=== PATIENT | male | born 1965 | race African-American/Black ===

== ENCOUNTER 2017-11-16 19:10 | Emergency (ER) | payer OTHER ==
[2017-11-16 19:41] LABS: ADD MAN DIFF? NO
[2017-11-16] MEDS: HYDROmorphONE 1 MG/ML SYG IV ×3 (19:41→22:23)
[2017-11-16] MEDS: ONDANSETRON 4 MG INJ IV ×3 (19:41→22:23)
[2017-11-16] MEDS: SOD CHLORIDE 0.9% 1,000 ML IV (19:41)
[2017-11-16 19:43] LABS: BASOPHILS % 0.4 % (0.0-2.0); EOSINOPHILS # 0.2 10^3/ul (0.0-0.5); EOSINOPHILS % 1.5 % (0.0-7.0); HEMATOCRIT 39.7 % (42.0-52.0); HEMOGLOBIN 12.7 g/dl (14.0-18.0); LYMPHOCYTES # 2.1 10^3/ul (0.8-2.9); LYMPHOCYTES % 20.7 % (15.0-51.0); MEAN CORPUSCULAR HEMOGLOBIN 26.7 pg (29.0-33.0); MEAN CORPUSCULAR VOLUME 83.4 fl (82.0-101.0); MEAN PLATELET VOLUME 10.5 fl (7.4-10.4); MONOCYTE # 0.7 10^3/ul (0.3-0.9); MONOCYTES % 6.8 % (0.0-11.0); NEUTROPHIL # 7.2 10^3/ul (1.6-7.5); NEUTROPHILS % 70.3 % (39.0-77.0); PLATELET COUNT 210 10^3/UL (140-415); RED BLOOD COUNT 4.76 10^6/ul (4.70-6.10); RED CELL DISTRIBUTION WIDTH 13.6 % (11.5-14.5)
[2017-11-16 19:43] LABS: WHITE BLOOD COUNT 10.2 10^3/ul (4.8-10.8)
[2017-11-16 20:04] LABS: ALANINE AMINOTRANSFERASE 54 IU/L (13-69); ALBUMIN 4.4 g/dl (3.3-4.9); ALBUMIN/GLOBULIN RATIO 1.41; ALKALINE PHOSPHATASE 55 IU/L (42-121); AMYLASE 86 U/L (11-123); ANION GAP 17 (8-16); ASPARTATE AMINO TRANSFERASE 33 IU/L (15-46); BILIRUBIN,INDIRECT 0.2 mg/dl (0-1.1); BILIRUBIN,TOTAL 0.2 mg/dl (0.2-1.3); BLOOD UREA NITROGEN 11 mg/dl (7-20); CALCIUM 9.5 mg/dl (8.4-10.2); CARBON DIOXIDE 27 mmol/L (21-31); CHLORIDE 102 mmol/L (97-110); CREATININE 0.99 mg/dl (0.61-1.24); GLUCOSE 101 mg/dl (70-220); LIPASE 55 U/L (23-300); POTASSIUM 3.9 mmol/L (3.5-5.1); SODIUM 142 mmol/L (135-144); TOTAL PROTEIN 7.5 g/dl (6.1-8.1)
[2017-11-16 20:10] LABS: INR 0.96; PROTIME 12.9 Sec (11.9-14.9)
[2017-11-16 20:11] LABS: PARTIAL THROMBOPLASTIN TIME 31.1 Sec (25.0-35.0)
[2017-11-16 20:17] LABS: TROPONIN-I < 0.012 ng/ml (0.000-0.120)
[2017-11-16] MEDS: SOD CHLORIDE 0.9% 100 ML (21:19)
[2017-11-16] MEDS: IOHEXOL 300MG/ML 150 ML BTL (21:20)
[2017-11-16] MEDS: KETOROLAC 30 MG INJ IV (21:49)
== END 2017-11-17 00:13 | disposition home or self-care (01) ==
LOC: E/R 11-17 00:13
DX: K57.30 Diverticulosis of large intestine without perforation or abscess without bleeding (principal); I10 Essential (primary) hypertension
CPT/HCPCS: 74177; 80053; 82150; 83690; 84484; 85025; 85610; 85730; 93005; 96374; 96375; 96376; 99285-25

== ENCOUNTER 2018-01-11 08:57 | Emergency (ER) | payer OTHER ==
[2018-01-11] MEDS: HYDROCODONE/APAP (10/325) TAB PO (09:43)
[2018-01-11] MEDS ORDERED: KETOROLAC 60 MG INJ IM (10:59)
[2018-01-11] MEDS: HYDROmorphONE 2 MG/ML SYG IM (12:01)
== END 2018-01-11 13:29 | disposition home or self-care (01) ==
LOC: FTE 08:57
DX: S39.92XA Unspecified injury of lower back, initial encounter (principal); S89.92XA Unspecified injury of left lower leg, initial encounter; I10 Essential (primary) hypertension; W01.0XXA Fall on same level from slipping, tripping and stumbling without subsequent striking against object, initial encounter; Y92.9 Unspecified place or not applicable
CPT/HCPCS: 72100; 72131; 73562; 73590; 73610-RT; 73630; 73700; 96372; 99285-25

== ENCOUNTER 2018-12-29 21:37 | Emergency (ER) | payer OTHER ==
[2018-12-29 22:29] LABS: ADD MAN DIFF? NO
[2018-12-29] MEDS: morphine 4 MG/ML VIAL IV (22:29)
[2018-12-29] MEDS: ONDANSETRON 4 MG INJ IV ×3 (22:29→23:07)
[2018-12-29] MEDS: SOD CHLORIDE 0.9% 1,000 ML IV (22:29)
[2018-12-29 22:31] LABS: WHITE BLOOD COUNT 11.2 10^3/ul (4.8-10.8)
[2018-12-29 22:32] LABS: BASOPHIL # 0.1 10^3/ul (0.0-0.1); BASOPHILS % 0.4 % (0.0-2.0); EOSINOPHILS # 0.2 10^3/ul (0.0-0.5); EOSINOPHILS % 1.5 % (0.0-7.0); HEMATOCRIT 38.9 % (42.0-52.0); HEMOGLOBIN 12.1 g/dl (14.0-18.0); LYMPHOCYTES # 2.8 10^3/ul (0.8-2.9); LYMPHOCYTES % 24.6 % (15.0-51.0); MEAN CORPUSCULAR HEMOGLOBIN 26.4 pg (29.0-33.0); MEAN CORPUSCULAR HGB CONC 31.1 g/dl (32.0-37.0); MEAN CORPUSCULAR VOLUME 84.9 fl (82.0-101.0); MEAN PLATELET VOLUME 10.3 fl (7.4-10.4); MONOCYTE # 0.9 10^3/ul (0.3-0.9); MONOCYTES % 8.2 % (0.0-11.0); NEUTROPHIL # 7.2 10^3/ul (1.6-7.5); PLATELET COUNT 259 10^3/UL (140-415); RED BLOOD COUNT 4.58 10^6/ul (4.70-6.10); RED CELL DISTRIBUTION WIDTH 14.1 % (11.5-14.5)
[2018-12-29 22:50] LABS: ALANINE AMINOTRANSFERASE 27 IU/L (13-69); ALBUMIN 4.4 g/dl (3.3-4.9); ALBUMIN/GLOBULIN RATIO 1.15; ALKALINE PHOSPHATASE 61 IU/L (42-121); ANION GAP 8 (5-13); ASPARTATE AMINO TRANSFERASE 18 IU/L (15-46); BILIRUBIN,INDIRECT 0.3 mg/dl (0-1.1); BILIRUBIN,TOTAL 0.3 mg/dl (0.2-1.3); BLOOD UREA NITROGEN 17 mg/dl (7-20); CALCIUM 9.7 mg/dl (8.4-10.2); CARBON DIOXIDE 28 mmol/L (21-31); CHLORIDE 105 mmol/L (97-110); CREATININE 1.11 mg/dl (0.61-1.24); Estimated GFR > 60 mL/min (>60); GLUCOSE 93 mg/dl (70-220); POTASSIUM 4.3 mmol/L (3.5-5.1); SODIUM 141 mmol/L (135-144); TOTAL PROTEIN 8.2 g/dl (6.1-8.1)
[2018-12-29 22:51] LABS: INR 0.96; PROTIME 12.9 Sec (11.9-14.9)
[2018-12-29 22:52] LABS: PARTIAL THROMBOPLASTIN TIME 33.3 Sec (23.0-35.0)
[2018-12-29] MEDS: HYDROmorphONE 1 MG/ML SYG IV (23:05)
[2018-12-29] MEDS: IOHEXOL 300MG/ML 150 ML BTL (23:53)
[2018-12-29] MEDS: SOD CHLORIDE 0.9% 100 ML (23:54)
[2018-12-30] MEDS: HYDROCODONE/APAP (10/325) TAB PO (01:13)
== END 2018-12-30 01:14 | disposition home or self-care (01) ==
LOC: E/R 12-30 01:14
DX: G89.18 Other acute postprocedural pain (principal); I10 Essential (primary) hypertension
CPT/HCPCS: 74177; 80053; 85025; 85610; 85730; 96374; 96375; 99285-25